=== PATIENT | male | born 1945 | race Caucasian/White ===

== ENCOUNTER → 2023-11-24 10:01 | Outpatient (REF) | payer MEDICARE, OTHER, SELFPAY | LOC: HWRAD 10:01 | PROVIDERS: ATTENDING PHYSICIAN Family Medicine | DX: M25.421 Effusion, right elbow (principal) | CPT/HCPCS: 73080 ==

== ENCOUNTER → 2024-08-10 08:09 | Outpatient (REF) | payer MEDICARE, OTHER, SELFPAY | LOC: HWRAD 08:09 | PROVIDERS: ATTENDING PHYSICIAN Family Medicine | DX: M62.830 Muscle spasm of back (principal) | CPT/HCPCS: 71046; 71100; 72072 ==